=== PATIENT | female | born 1995 | race Caucasian/White ===

== ENCOUNTER → 2024-05-16 14:55 | Outpatient (REF) | payer OTHER, SELFPAY | LOC: WDC 14:55 | PROVIDERS: ATTENDING PHYSICIAN Nurse Practitioner Family; FAMILY PHYSICIAN Family Medicine | DX: N63.10 Unspecified lump in the right breast, unspecified quadrant (principal) | CPT/HCPCS: 76642 ==

== ENCOUNTER 2024-12-25 19:00 | Emergency (ER) | payer OTHER, SELFPAY ==
[2024-12-25 19:01] VITALS: BMI 35.4
[2024-12-25 19:02] VITALS: BP 125/82
[2024-12-25 19:05] VITALS: BP 125/82
--- NOTE | 2024-12-25 21:22 | ED.GENMED ---
History of Present Illness
General
Chief Complaint: Eye Problems
Source: patient
Exam Limitations: none
Time Seen by Provider: 12/25/24 20:07
Nursing documentation reviewed up to this point in time: agreed with
History of Present Illness
History of Present Illness:
29-year-old female with history as noted presents to the ER for evaluation after transient visual disturbance. Patient says that she was laying in bed scrolling on her phone at around 6:15 PM when she started to notice visual disturbance in her
left eye. She describes that initially she had minor floater followed by darkening of her vision 'like a black haze' across her left eye. She says she did not have vision loss and still could see from the eye. She did not have any eye pain. She
did have some slight watering of the eye. She had no symptoms in the right eye. She says that her symptoms made her very anxious and she had a minor 'panic attack' in the car before coming over�she says she has had panic attacks in the past and
this felt identical. She says that symptoms lasted somewhere between 30 minutes and an hour and had resolved by the time she got to the ER. She denies any associated headache. She denies any associated speech difficulties. Denies numbness or
weakness in her extremities. She says she has never had similar symptoms in the past. She is completely asymptomatic in the ER says that her vision is back to normal.
Past History
Past History
ED Past Medical History: Asthma and Psychiatric (Bipolar disorder, cutting, depression, prior Benadryl as well as Vistaril overdoses.)
ED Past Surgical History: None
Social History
Tobacco: Smoker
Alcohol: Occasional
Drug: None
Personal: Single
Living: with family
Employment: Employed
Family History
Family History: Other (Noncontributory)
Review of Systems
Review of Systems
All Other Systems: ROS reviewed and negative except as documented in HPI and ROS
EENT: Reports other (Transient visual disturbance)
Cardiac: Denies chest pain
Neurological: Denies dizzy, headache, weakness or numbness
Phy Exam
Physical Exam
Physical Exam:
General: Awake, alert, oriented x3; no acute distress
Head: Normocephalic, atraumatic
Eyes: Visual acuity 20/20 right, 20/20 left, 20/20 both; conjunctiva normal, EOMI, pupils are equal round and reactive to light bilaterally approximately 4 mm; on fluorescein exam patient has no corneal abrasions bilaterally, negative Berenice sign,
no dendritic lesions; eye pressures high normal-- 24/25/25/24 right - 20/23/19/20 left (affected eye); on funduscopic examination no optic disc edema or vascular abnormalities noted
Throat: Airway intact, handling secretions
Neck: Trachea midline
Lungs: Clear to auscultation bilaterally, no wheezing, rales, rhonchi
Heart: Regular rate and rhythm, no murmurs, gallops, or rubs
Abd: Soft, non distended, nontender
Neuro: Cranial nerves intact 2 through 12, speech fluid without dysarthria or aphasia, no limb ataxia, motor and sensory intact in all extremities
Extremities: Warm and well-perfused
Scores
Heart Failure Risk
Heart Failure Risk Score: Not Applicable
Heart Score for Chest Pain Patients
STEMI patient?: Not applicable
Withdrawal Assessment of Alcohol
Withdrawal Assessment Completed?: Not applicable
Course
Orders/Labs/Results
Orders:
Orders
12/25/24 20:12
Visual Acuity- Treatment ONCE
Vital Signs
Initial and Last Documented VS:
Initial Vital Signs
Temp Pulse Resp BP Pulse Ox
36.9 C 86 18 125/82 97
12/25/24 19:02 12/25/24 19:02 12/25/24 19:02 12/25/24 19:02 12/25/24 19:02
Last Documented Vital Signs
Temp Pulse Resp BP Pulse Ox
36.9 C 86 18 125/82 97
12/25/24 19:02 12/25/24 19:02 12/25/24 19:02 12/25/24 19:02 12/25/24 19:02
MDM/Problems Addressed
Differential Diagnosis Includes:
Eyestrain, ocular migraine, vitreous hemorrhage, retinal tear, central retinal artery occlusion
MDM/Problems Addressed:
29-year-old female presents to the ER for evaluation after transient visual disturbance as described above. Symptoms have completely resolved. Vitals and exam as above. Suspect likely eyestrain although ocular migraine a consideration�she does
report that there is a family history of migraines including ocular migraines but she has no personal history. Low suspicion for retinal tear or vitreous hemorrhage�symptoms completely resolved and she did not have vision loss just had transient
haze of her vision and furthermore her funduscopic exam was reassuring. Stable for discharge, she did have high normal eye pressures, advised to follow-up with ophthalmology this week. She says that her aunt works for an ophthalmology office that
she plans to follow-up in. Advised to call tomorrow for appointment this week. All questions answered.
*Pulse Oximetry
SaO2: 97
Oxygen Mode of Delivery: Room air
Patient hypoxic: no (97%)
*Critical Care Note
Total Time (30-74mins, 75-104mins- exclusive of procedures): Not Applicable
Data Reviewed
Source: patient
ED Attending Note
-
Portions of this chart may have been created with voice recognition software.� Occasional wrong word or��sound alike� substitutions may have occurred due to the inherent limitations of voice recognition software.
Discharge Plan
Departure
Patient Disposition: Home (Routine Discharge)
Date of Disposition: 12/25/24
Time of Disposition: 21:22
Patient with high blood pressure during this ER visit?: No
Discharge Problem:
Transient vision disturbance of left eye
Instructions: Eyestrain
Prescriptions:
No Action
fluoxetine [Prozac] 40 MG capsule
40 mg PO DAILY
lamotrigine [Lamictal] 200 MG tablet
200 mg PO BID
lurasidone [Latuda] 60 MG tablet
120 mg PO QPM
gabapentin 100 MG capsule
200 mg PO HS
gabapentin 100 MG capsule
100 mg PO .IN AM
hydroxyzine pamoate [Vistaril] 25 MG capsule
75 mg PO PRN PRN (Reason: anxiety)
Referrals:
Colby Perez MD [Active, Ophthalmology] - Call in 1-3 days for appt
Referral Note: You should follow-up with an chlorine operator this weekyou can either follow-up with your chlorine operator or with Dr. Perez at the number above.
Activity Restrictions/Additional Instructions:
Please return if you have any return of symptoms. Otherwise you should follow-up with the chlorine operator this week as we discussed.
Thank you for visiting the Emergency Department at [facility].
1. Please schedule a follow up appointment as directed. Call first thing tomorrow morning to make an appointment.
2. If indicated, please take your medications as instructed and indicated on discharge paperwork.
3. If any of your symptoms do not improve, or persist, or become more severe within 6-12 hours, please return to the emergency department for further care.
4. Please return to the emergency department if you develop a headache, neck pain/stiffness, fever greater than 100.4F, chest pain, shortness of breath, persistent nausea, vomiting, slurred speech, difficulty walking, numbness/tingling, weakness,
signs of infection or any other symptoms that are worrisome to you.
Please call [phone] if you have any questions.
Interventions
Interventions:
*Risk Screen - Suicide Last Done: 12/25/24 19:02
*General Assessment Last Done: 12/25/24 19:02
*Neglect/Abuse Screening Last Done: 12/25/24 19:02
*ED- Fall Risk Assessment Last Done: 12/25/24 19:02
*ED COVID-19 Vaccine History Last Done: 12/25/24 19:02
Discharge Date and Time
Print Language: ROMANIAN
[2024-12-25 21:33] VITALS: BP 128/86
== END 2024-12-25 21:39 | disposition home or self-care (01) ==
LOC: EMR 19:00
PROVIDERS: EMERGENCY PHYSICIAN Emergency Medicine; FAMILY PHYSICIAN Family Medicine
DX: H53.9 Unspecified visual disturbance (principal); J45.909 Unspecified asthma, uncomplicated; F17.200 Nicotine dependence, unspecified, uncomplicated
CPT/HCPCS: 99283